=== PATIENT | male | born 1970 | race African-American/Black ===

== ENCOUNTER 2021-01-01 03:27 | Emergency (ER) | payer OTHER ==
[~2021-01-01] VITALS: Ht 182.9 cm; Wt 94.8 kg
[2021-01-01] MEDS ORDERED: SODIUM CHLORIDE 0.9% 1,000 ML IV ONE ×3 (04:15→10:00)
[2021-01-01 04:52] LABS: Basophils # (auto) 0 10 ^3/uL (0-0.2); Basophils % (auto) 0.1 % (0.0-2.0); Eosinophils # (auto) 0.1 10 ^3/uL (0-0.8); Eosinophils % (auto) 0.6 % (0.0-7.0); Hematocrit 48.9 % (41.0-53.0); Hemoglobin 16.8 g/dL (13.5-17.5); Lymphocytes # (auto) 1.4 10 ^3/uL (0.4-5.4); Mean Corpuscular Hemoglobin 29.5 pg (28.0-32.0); Mean Corpuscular Hgb Conc. 34.4 g/dL (32.0-36.0); Mean Corpuscular Volume 85.7 fL (80.0-100.0); Monocytes # (auto) 0.8 10 ^3/uL (0-1.3); Neutrophils # (auto) 10.3 10 ^3/uL (1.6-8.6); Neutrophils % (auto) 82.3 % (37.0-80.0); Nucleated Red Blood Cells % 0.1 %; Red Cell Distribution Width 13.1 % (11.8-14.3); White Blood Cell 12.5 10^3/uL (4.4-10.8)
[2021-01-01 05:13] LABS: Calcium 8.6 mg/dL (8.5-10.1)
[2021-01-01 05:19] LABS: Albumin 3.1 g/dL (3.4-5.0); BUN/Creatinine Ratio 5.7; Bilirubin, Total 0.5 mg/dL (0.2-1.0); Total Protein 7.4 g/dL (6.4-8.2)
[2021-01-01 05:30] LABS: Potassium 2.7 mmol/L (3.5-5.1)
[2021-01-01] MEDS ORDERED: POTASSIUM EFFERVESENT TAB 25 MEQ PO ONE (05:45)
[2021-01-01] MEDS: POTASSIUM CHL 20MEQ/100ML 100 ML IV SCH ×2 (06:38→09:28)
[2021-01-01] MEDS ORDERED: InsuLIN REG 1unit/0.01ml Soln (100units/ml) IV ONE (10:00)
[2021-01-01] MEDS ORDERED: cloNIDine HCL 0.1 MG TAB PO ONE (10:45)
[2021-01-01] MEDS ORDERED: clonazePAM 0.5 MG TAB PO ONE (10:45)
[2021-01-01] MEDS ORDERED: cloNIDine HCL 0.1 MG TAB ONE (10:47)
[2021-01-01] MEDS ORDERED: amLODIPine BESYLATE 5 MG TAB PO ONE (11:00)
[2021-01-01] MEDS ORDERED: LABETALOL HCL 5 MG/ML 4ML SYRINGE IV ONE (12:15)
[2021-01-01 13:00] VITALS: BP 158/87
== END 2021-01-01 13:52 | disposition home or self-care (01) ==
LOC: EDBD 03:27 → ER 03:29
DX: E11.65 Type 2 diabetes mellitus with hyperglycemia (principal); R56.9 Unspecified convulsions; I10 Essential (primary) hypertension; Z20.822 Contact with and (suspected) exposure to COVID-19
CPT/HCPCS: 36415; 70450; 80053; 82010; 82962; 83880; 84133; 85025; 87426; 96361; 96365; 96366; 96375; 99291; J1815; J3480; J3490; J7030